=== PATIENT | female | born 1980 | race American Indian/Alaskan Native ===

== ENCOUNTER 2017-04-27 08:40 | Day surgery (SDC) | payer MEDICARE ==
[~2017-04-27 08:40] MED LIST: ANCEF/STERILE WATER 2 GM/20 ML 2 GM/20 ML SYRINGE IV NR; NACL 0.9% 1000 ML 1,000 ML IV SCH
[2017-04-27 09:41] LABS: Hemoglobin 11.5 gm/dl (10.1-14.3); Mean Corpuscular HGB Conc 32 % (30-34); Mean Corpuscular Volume 76 fl (79-97); Platelet Count 255 K/mm3 (140-440); Red Blood Count 4.73 M/mm3 (3.65-5.03); Red Cell Distribution Width 19.3 % (13.2-15.2)
[2017-04-27 09:48] LABS: Mean Corpuscular Hemoglobin 24 pg (28-32)
[2017-04-27] MEDS ORDERED: MORPHINE IV PRN (09:51)
[2017-04-27] MEDS ORDERED: ZOFRAN IV PRN (09:51)
[2017-04-27 09:53] LABS: Calcium 8.9 mg/dL (8.4-10.2)
--- NOTE | 2017-04-27 09:59 | Anesthesia Consultation ---
Anesthesia Consult and Med Hx Date of service: 04/27/17 - Airway Anesthetic Teeth Evaluation: Good ROM Head & Neck: Adequate Mental/Hyoid Distance: Adequate Mallampati Class: Class II Intubation Access Assessment: Probably Good - Pulmonary Exam CTA: Yes - Cardiac Exam Cardiac Exam: RRR - Pre-Operative Health Status ASA Pre-Surgery Classification: ASA3 Proposed Anesthetic Plan: General - Pulmonary Hx Smoking: Yes (MARIJUANA, QUIT IN 2005) Hx Asthma: No - Cardiovascular System Hx Hypertension: Yes (since 2005) - Central Nervous System Hx Seizures: Yes (X1, LAST IN OCTOBER) Hx Psychiatric Problems: No - Endocrine Hx Renal Disease: Yes (ON HD SINCE OCTOBER, RIGHT PERMACATH) Hx End Stage Renal Disease: Yes - Other Systems Hx Alcohol Use: Yes (occas) Hx Cancer: No
[2017-04-27] MEDS ORDERED: VERSED IV NR (10:00)
[2017-04-27] MEDS ORDERED: PEPCID PO NR (10:00)
--- NOTE | 2017-04-27 10:00 | Anesthesia Day of Surgery ---
Anesthesia Day of Surgery - Day of Surgery Patient Examined: Yes Patient H&P Reviewed: Yes Patient is NPO: Yes Beta Blockers: Yes Zuhair's Test: N/A
[2017-04-27 10:41] LABS: Total Cells Counted 100
[2017-04-27 10:42] LABS: Anisocytosis Few; Basophils % (Manual) 0 % (0.0-1.8); Eosinophils % (Manual) 0 % (0.0-4.3)
[2017-04-27 10:43] LABS: Hypochromasia 1+; Platelet Estimate Consistent w Auto; Stomatocytes Few
[2017-04-27] MEDS ORDERED: DIPRIVAN 10 MG/ML IV ONE (12:40)
[2017-04-27] MEDS ORDERED: XYLOCAINE MPF 2% ONE (12:41)
[2017-04-27] MEDS ORDERED: HEPARIN 10,000 UNITS/10 ML ONE (12:44)
[2017-04-27] MEDS ORDERED: LIDOCAINE 1.5%/EPI 1:200,000 INFILTRATI ONE (12:44)
[2017-04-27] MEDS ORDERED: DILAUDID ONE (13:15)
[2017-04-27] MEDS ORDERED: ZOFRAN ONE (13:16)
[2017-04-27] MEDS ORDERED: DECADRON ONE (13:16)
[2017-04-27] MEDS ORDERED: MARCAINE 0.5% INFILTRATI ONE ×2 (13:24→13:53)
[2017-04-27] MEDS ORDERED: HEPARIN 10,000 UNITS/10 ML 2,000 UNIT in NACL 0.9% 500 ML 500 ML IR ONE (13:54)
[2017-04-27] MEDS ORDERED: NACL 0.9% IR ONE (13:54)
--- NOTE | 2017-04-27 15:17 | Short Stay Summary ---
Short Stay Documentation Date of service: 04/27/17 Narrative H&P: See H&P - History H&P: obtained from office - Allergies and Medications Current Medications: Allergies No Known Allergies Allergy (Unverified 04/26/17 17:20) Home Medications Medication Instructions Recorded Confirmed Last Taken Type Atenolol [Tenormin] 50 mg PO DAILY 04/26/17 04/26/17 Unknown History Cinacalcet [Sensipar] 30 mg PO QDAY 04/26/17 04/26/17 Unknown History NIFEdipine XL [Procardia Xl] 60 mg PO QDAY 04/26/17 04/26/17 Unknown History Vit B Comp No.3/Folic/C/Biotin 1 each PO DAILY 04/26/17 04/26/17 Unknown History [Swati-Sun Rx Tablet] levETIRAcetam [Keppra TAB] 250 mg PO DAILY 04/26/17 04/26/17 Unknown History Active Medications Famotidine (Pepcid) 20 mg PO PREOP NR Stop: 04/27/17 23:59 Last Admin: 04/27/17 10:23 Dose: 20 mg Cefazolin Sodium (Ancef/Sterile Water 2 Gm/20 Ml) 2 gm in 20 mls @ 80 mls/hr IV PREOP NR PRN Reason: Protocol Stop: 04/27/17 23:59 Sodium Chloride (Nacl 0.9% 1000 Ml) 1,000 mls @ 42 mls/hr IV DIRECT PARVEEN Last Admin: 04/27/17 10:09 Dose: 42 mls/hr Midazolam HCl (Versed) 2 mg IV PREOP NR Stop: 04/27/17 23:59 Last Admin: 04/27/17 12:48 Dose: 2 mg Morphine Sulfate (Morphine) 2 mg IV Q10MIN PRN PRN Reason: Pain, Moderate (4-6) Stop: 04/27/17 20:00 Ondansetron HCl (Zofran) 4 mg IV ONCE PRN PRN Reason: Nausea And Vomiting Stop: 04/27/17 23:59 - Brief post op/procedure progress note Date of procedure: 04/27/17 Pre-op diagnosis: End-Stage Renal Disease Post-op diagnosis: same Procedure: Creation of Left Ivanna Arteriovenous Fistula Anesthesia: GETA Surgeon: USHA MARTINEZ Estimated blood loss: minimal Pathology: none Condition: stable - Disposition Condition at discharge: Good Disposition: DC-01 TO HOME OR SELFCARE Short Stay Discharge Plan Activity: other (no heavy lifting with left arm) Wound: open to air, keep clean and dry, other (okay to wash the wound with soap and water but do not soak in water) Follow up with: DR FELIX [Other] - 7 Days USHA MARTINEZ MD [Staff Physician] - 14 Days Prescriptions: HYDROcodone/APAP 7.5-325 [Goodman 7.5/325] 1 each PO Q6HR PRN #40 tablet PRN Reason: Pain
--- NOTE | 2017-04-27 15:21 | Operative Report ---
Operative Report Operative Report: Date of procedure: 04/27/2017 Pre-operative diagnosis: End-Stage Renal Disease Post-operative diagnosis: End-Stage Renal Disease Procedure(s): Creation of Left Ivanna Fistula Surgeon: Guanaco Graham MD Electric Arc Furnace Operator: None Anesthesia: General Endotracheal Anesthesia EBL: Minimal Counts: Correct Complications: None Condition: Stable Findings: Successful creation of left arm AV fistula Specimen: None Indication: The patient is a 36-year-old female with a history of end-stage renal disease currently on hemodialysis through a right internal jugular permacath. She is in need of long-term hemodialysis access and found to be a suitable candidate for creation of a left arm arteriovenous fistula. She was given the risks, benefits, and alternative procedures and consented to the procedure. Description of Procedure: The patient was brought to the operating room and laid in supine position after general endotracheal anesthesia was achieved his left arm was prepped and draped in normal sterile fashion. Longitudinal incision was then created on the distal wrist centered over the cephalic vein and a second incision was created in longitudinal fashion over the radial artery. The radial artery was dissected out circumferentially and controlled with vessel loops. The cephalic vein was then dissected out circumferentially, ligating side branches and dividing them, and then a tunnel was created to transpose it over to the radial artery. A 3 Jane was then advanced through the cephalic vein proximally to ensure patency. The vein was then flushed with heparinized saline and control of the bulldog clamp. The radial artery vessel loops were put on tension occluding flow, and then an 11 blade and Gerardo scissors used to create an arteriotomy. An [id number] anastomosis created between the cephalic vein and the radial artery using a single 6-0 Prolene in running fashion. Prior to completing the anastomosis I flushed the artery both retrograde and antegrade and advanced a 3 Jane into the proximal portion of the artery to break the spasm. I then completed the anastomosis and removed all clamps allowing flow into the fistula which had an excellent thrill. The necessity wound using half percent Marcaine plain. Then closed the wounds in 2 layers using a 3-0 Vicryl running fashion the deep dermal layer, 4-0 Monocryl in a running fashion the subcuticular layer, and Surgicel as a dressing. The patient tolerated the procedure well, all sponge needle asthma counts correct, the patient was taken to recovery in stable condition.
[2017-04-27 16:12] VITALS: BP 117/71
--- NOTE | 2017-04-27 21:00 | Post Anesthesia Evaluation ---
- Post Anesthesia Evaluation Patient Participated: Yes Airway Patent: Yes Stable Respiratory Function: Yes Nausea/Vomiting: No Temp > 96.8F: Yes Pain Manageable: Yes Adequeate Hydration: Yes Anesthesia Complications: No Block Receding Appropriately: Not Applicable Patient on Ventilator: No
== END 2017-04-27 08:41 | disposition home or self-care (01) ==
LOC: OR 08:40
PROVIDERS: ATTEND Surgery Vascular Surgery
DX: I12.0 Hypertensive chronic kidney disease with stage 5 chronic kidney disease or end stage renal disease (principal); N18.6 End stage renal disease; Z87.891 Personal history of nicotine dependence
CPT/HCPCS: 36415; 36821; 80048; 81025; 85007; 85025; C1757; J0690; J1100; J1170; J1644; J2250; J2405; J2704; J7030; J7040

== ENCOUNTER 2017-05-25 06:34 | Day surgery (SDC) | payer MEDICARE ==
[~2017-05-25 06:34] MED LIST changes: +MARCAINE 0.5% INFILTRATI ONE
[2017-05-25] MEDS ORDERED: DIPRIVAN 10 MG/ML IV ONE (07:03)
[2017-05-25] MEDS ORDERED: XYLOCAINE MPF 2% ONE (07:04)
--- NOTE | 2017-05-25 07:20 | Anesthesia Consultation ---
<NORM ACOSTA - Last Filed: 05/25/17 07:18> Anesthesia Consult and Med Hx - Airway Anesthetic Teeth Evaluation: Good ROM Head & Neck: Adequate Mental/Hyoid Distance: Adequate Mallampati Class: Class I Intubation Access Assessment: Good - Pulmonary Exam CTA: Yes - Cardiac Exam Cardiac Exam: RRR - Pre-Operative Health Status ASA Pre-Surgery Classification: ASA3 Proposed Anesthetic Plan: IV Sedation - Pre-Anesthesia Comment Pre-Anesthesia Comments: Dr. Amos plans to perform a supraclavicular block. - Pulmonary Hx Smoking: Yes (MARIJUANA, QUIT IN 2005) - Cardiovascular System Hx Hypertension: Yes (since 2005) - Central Nervous System Hx Seizures: Yes (X1, LAST IN OCTOBER) Hx Psychiatric Problems: No - Endocrine Hx End Stage Renal Disease: Yes - Other Systems Hx Alcohol Use: Yes (occas) Hx Cancer: No <SANDRINE AMOS - Last Filed: 05/25/17 07:22> Anesthesia Consult and Med Hx - Pre-Operative Health Status Nerve Block: brachial plexus block
--- NOTE | 2017-05-25 07:21 | Anesthesia Day of Surgery ---
Anesthesia Day of Surgery - Day of Surgery Patient Examined: Yes Patient H&P Reviewed: Yes Patient is NPO: Yes Beta Blockers: Yes
[2017-05-25] MEDS ORDERED: DILAUDID IV PRN (07:23)
[2017-05-25] MEDS ORDERED: SUBLIMAZE IV NR (07:23)
[2017-05-25] MEDS ORDERED: XYLOCAINE 1% 20 mL ONE ×2 (07:27→07:46)
[2017-05-25] MEDS ORDERED: PROTAMINE SULFATE ONE (07:27)
[2017-05-25] MEDS ORDERED: MARCAINE 0.5% INFILTRATI ONE (07:27)
[2017-05-25] MEDS ORDERED: PAPAVERINE ONE (07:28)
[2017-05-25] MEDS ORDERED: NACL 0.9% 500 ML 500 ML ONE (07:28)
[2017-05-25] MEDS ORDERED: HEPARIN 10,000 UNITS/10 ML ONE (07:28)
[2017-05-25] MEDS ORDERED: SODIUM BICARBONATE ONE (07:29)
[2017-05-25] MEDS ORDERED: NITROGLYCERIN SYRINGE 0 ML ONE (07:30)
[2017-05-25 07:36] LABS: Basophils % (Auto) 0.8 % (0.0-1.8); Eosinophils # (Auto) 0.1 K/mm3 (0.0-0.4); Eosinophils % (Auto) 1.6 % (0.0-4.3); Hematocrit 29.4 % (30.3-42.9); Hemoglobin 9.4 gm/dl (10.1-14.3); Lymphocytes % (Auto) 30.5 % (13.4-35.0); Mean Corpuscular HGB Conc 32 % (30-34); Mean Corpuscular Volume 79 fl (79-97); Monocytes # (Auto) 0.4 K/mm3 (0.0-0.8); Monocytes % (Auto) 6.4 % (0.0-7.3); Platelet Count 263 K/mm3 (140-440); Red Blood Count 3.73 M/mm3 (3.65-5.03)
[2017-05-25 07:42] LABS: Mean Corpuscular Hemoglobin 25 pg (28-32); Red Cell Distribution Width 21.2 % (13.2-15.2)
[2017-05-25] MEDS ORDERED: MARCAINE 0.5% 30 ML INFILTRATI ONE (07:46)
[2017-05-25 07:49] LABS: Calcium 9.5 mg/dL (8.4-10.2)
[2017-05-25] MEDS ORDERED: VERSED IV NR (08:00)
[2017-05-25] MEDS ORDERED: ANCEF/STERILE WATER 2 GM/20 ML IV NR (09:00)
[2017-05-25] MEDS ORDERED: XYLOCAINE 1% 20 mL INFILTRATI ONE (09:18)
[2017-05-25] MEDS ORDERED: SODIUM BICARBONATE INFILTRATI ONE (09:18)
[2017-05-25] MEDS ORDERED: HEPARIN 10,000 UNITS/10 ML IV ONE (09:31)
[2017-05-25] MEDS ORDERED: NACL 0.9% 500 ML IV ONE (09:34)
--- NOTE | 2017-05-25 10:24 | Short Stay Summary ---
Short Stay Documentation Date of service: 05/25/17 Narrative H&P: See H&P - History H&P: obtained from office - Allergies and Medications Current Medications: Allergies No Known Allergies Allergy (Unverified 04/26/17 17:20) Home Medications Medication Instructions Recorded Confirmed Last Taken Type Atenolol [Tenormin] 50 mg PO DAILY 04/26/17 05/25/17 05/25/17 05:00 History Cinacalcet [Sensipar] 30 mg PO QDAY 04/26/17 05/25/17 05/24/17 21:00 History NIFEdipine XL [Procardia Xl] 60 mg PO QDAY 04/26/17 05/25/17 05/25/17 05:00 History Vit B Comp No.3/Folic/C/Biotin 1 each PO DAILY 04/26/17 05/25/17 05/24/17 09:00 History [Swati-Sun Rx Tablet] HYDROcodone/APAP 7.5-325 [Miranda 1 each PO Q6HR PRN #40 tablet 04/27/17 05/25/17 Unknown Rx 7.5/325] Active Medications Cefazolin Sodium (Ancef/Sterile Water 2 Gm/20 Ml) 2 gm IV PREOP NR Stop: 05/25/17 12:00 Hydromorphone HCl (Dilaudid) 0.25 mg IV Q10MIN PRN PRN Reason: Pain, Moderate (4-6) Stop: 05/25/17 12:00 Sodium Chloride (Nacl 0.9% 1000 Ml) 1,000 mls @ 42 mls/hr IV DIRECT PARVEEN Stop: 05/25/17 23:59 Last Admin: 05/25/17 07:10 Dose: 42 mls/hr Midazolam HCl (Versed) 2 mg IV PREOP NR Stop: 05/25/17 23:59 Last Admin: 05/25/17 07:50 Dose: 1 mg - Brief post op/procedure progress note Date of procedure: 05/25/17 Pre-op diagnosis: Complications of Dialysis Access Post-op diagnosis: same Procedure: Creation of Left Brachiocephalic Arteriovenous Fistula Anesthesia: regional Surgeon: USHA MARTINEZ Estimated blood loss: minimal Pathology: none Condition: stable - Disposition Condition at discharge: Good Disposition: DC-01 TO HOME OR SELFCARE Short Stay Discharge Plan Activity: other (No heavy lifting with left arm) Wound: open to air, keep clean and dry, other (Okay to wash the wound with soap and water but do not soak in water ) Follow up with: USHA MARTINEZ MD [Staff Physician] - 14 Days Prescriptions: HYDROcodone/APAP 7.5-325 [Miranda 7.5/325] 1 each PO Q6HR PRN #40 tablet PRN Reason: Pain
--- NOTE | 2017-05-25 10:29 | Operative Report ---
Operative Report Operative Report: Date of procedure: 05/25/2017 Pre-operative diagnosis: End-Stage Renal Disease Post-operative diagnosis: End-Stage Renal Disease Procedure(s): Creation of Left Brachial Artery to Cephalic Vein Arteriovenous Fistula Surgeon: Guanaco Graham MD Room Inspector: None Anesthesia: Regional Block EBL: Minimal Counts: Correct Complications: None Condition: Stable Findings: Successful creation of left brachiocephalic arteriovenous fistula with palpable throughout the completion of the case. Specimen: None Indications: The patient is a 36-year-old female with a history of end-stage renal disease who is currently on hemodialysis through a right internal jugular permacath. She previously underwent creation of a left Ivanna fistula however this thrombosed shortly after operation. She is in need of creation of long-term access. She has adequate vein for creation of an AV fistula. She was given the risks, benefits, and alternative procedures and consented to the procedure. Description of Procedure: The patient was brought to the operating room and laid in supine position after general endotracheal anesthesia was administered the patient was prepped and draped in normal sterile fashion. After anesthetizing the skin a transverse incision was created just below the antecubital crease. Dissection was carried down to the the cephalic vein using sharp dissection. The vein was dissected out both proximally and distally and suture ligated and divided distally. I then ran a 3 Jane proximally in the vein, to ensure patency of the vein. Then flushed the vein with heparinized saline and flow was controlled with a bulldog clamp. I then dissected out the brachial artery through this incision circumferentially both proximal and distal and controlled the artery with vessel loops. I then placed the vessel loops on tension controlling the flow through the artery and created an arteriotomy using an 11 blade and Gerardo scissors. I created an end to side anastomosis between the cephalic vein and brachial artery using a 6-0 Prolene in running fashion. Prior to completing the anastomosis I flushed the artery both proximally and distally and then advanced a 3 Jane proximally to break the spasm in the artery. I then completed the anastomosis and removed all vessel loops allowing flow into the fistula which had an excellent thrill. I achieved hemostasis with a combination of direct pressure and electrocautery. Once hemostasis was achieved I anesthetized the wound with Marcaine. I then closed the wound in 2 layers and 3-0 Vicryl in a running fashion to close the deep dermal layer and 4- 0 Monocryl in a running fashion in the subcuticular layer. I dressed the wound with Surgicel. The patient tolerated the procedure well, all sponge needle and instrument counts were correct. The patient was taken to recovery in stable condition.
[2017-05-25] MEDS ORDERED: APRESOLINE IV PRN (11:20)
[2017-05-25] MEDS ORDERED: NORCO 7.5/325 PO SCH (13:00)
--- NOTE | 2017-05-25 14:06 | Post Anesthesia Evaluation ---
- Post Anesthesia Evaluation Patient Participated: Yes Airway Patent: Yes Stable Respiratory Function: Yes Nausea/Vomiting: No Temp > 96.8F: Yes Pain Manageable: Yes Adequeate Hydration: Yes Other Comments: supraclavicular block for intraop and postop course
[2017-05-25 14:11] VITALS: BP 122/77
== END 2017-05-25 13:20 | disposition home or self-care (01) ==
LOC: OR 06:34
PROVIDERS: ATTEND Surgery Vascular Surgery
DX: I12.0 Hypertensive chronic kidney disease with stage 5 chronic kidney disease or end stage renal disease (principal); N18.6 End stage renal disease; Z87.891 Personal history of nicotine dependence
CPT/HCPCS: 36415; 36821; 80048; 81025; 85025; C1757; J0360; J1644; J2250; J2704; J3010; J7030; J7040; J2440; J2720